=== PATIENT | male | born 2000 | race Caucasian/White ===

== ENCOUNTER 2019-08-26 19:33 | Emergency (ER) | payer OTHER ==
[2019-08-26] MEDS ORDERED: Acetaminophen 500 MG TAB ONE (21:14)
[2019-08-26] MEDS ORDERED: Bicillin LA 1.2 MILLION UNITS/2 ML SYRINGE ONE (21:39)
== END 2019-08-26 21:53 | disposition home or self-care (01) ==
LOC: ERS 19:33
DX: J02.0 Streptococcal pharyngitis (principal); F17.290 Nicotine dependence, other tobacco product, uncomplicated
CPT/HCPCS: 87430; 87804; 96372; 99283; J0561